=== PATIENT | male | born 1945 | race Caucasian/White ===

== ENCOUNTER 2020-06-10 15:22 | Outpatient (CLI) | payer MEDICARE | END 2020-06-10 15:23 | disposition home or self-care (01) | LOC: CSHMRI 15:22 | PROVIDERS: ATTEND Nurse Practitioner Family | DX: M48.061 Spinal stenosis, lumbar region without neurogenic claudication (principal); M47.816 Spondylosis without myelopathy or radiculopathy, lumbar region; I71.4 Abdominal aortic aneurysm, without rupture | CPT/HCPCS: 72100; 72148 ==

== ENCOUNTER 2022-05-29 18:41 | Inpatient (IN) | payer MEDICARE ==
[2022-05-29] MEDS ORDERED: Ondansetron PF 4 MG/2 ML Vial ONE (20:12)
[2022-05-29 20:19] LABS: #Eosinphils 0.1 10x3/uL (0.0-0.5); #Monocytes 0.9 10x3/uL (0.0-1.1); #Neutrophils 7.1 10x3/uL (1.5-8.4); %Basophils 0.4 % (0.0-2.0); %Eosinophils 0.9 % (0.0-6.0); %Lymphocytes 19.4 % (18.0-47.0); %Neutrophils 69.9 % (40.0-75.0); Hemoglobin 13.1 g/dL (13.5-17.5); Mean Corpuscular HGB CONC 32.6 g/dL (32.0-36.0); Mean Corpuscular Hemoglobin 28.9 pg (27.0-33.0); Mean Corpuscular Volume 88.5 fl (81.2-95.1); Mean Platelet Volume 9.6 fl (7.4-10.4); Platelet Count 260 10x3/uL (150-450); RBC Distribution Width 14.6 % (11.5-14.5); Red Blood Cell (RBC) Count 4.54 10x6/uL (4.32-5.72); White Blood Cell (WBC) Count 10.1 10x3/uL (3.5-10.5)
[2022-05-29 20:37] LABS: ALT (SGPT) 22 U/L (8-55); AST (SGOT) 31 U/L (5-34); Acetaminophen Less than 10.0 mcg/mL (10.0-30.0); Albumin 3.6 g/dL (3.4-4.8); Alcohol Less than 10 mg/dL (Less than 10); Alkaline Phosphatase 59 U/L (40-110); Anion Gap 16 mmol/L (10-20); BUN (Urea Nitrogen) 21 mg/dL (8.4-25.7); Bilirubin, Total 0.3 mg/dL (0.2-1.2); Calc. Creatinine Clearance 0 mL/min (70-130); Carbon Dioxide 24 mmol/L (23-31); Chloride 102 mmol/L (98-107); Estimated GFR 30; Globulin 3.4 g/dL (2.4-3.5); Glucose 154 mg/dL (83-110); Magnesium 1.6 mg/dL (1.6-2.6); Potassium 3.4 mmol/L (3.5-5.1); Salicylate Less than 8.0 mg/dL (15.0-30.0); Sodium 139 mmol/L (136-145)
[2022-05-29 21:01] LABS: CKMB 8.7 ng/mL (0-6.6)
[2022-05-29] MEDS ORDERED: Aspirin Chewable 81 MG TAB ONE (21:03)
[2022-05-29] MEDS ORDERED: Dextrose 50% Abboject 50 ML SYRINGE SLOW IVP PRN (21:35)
[2022-05-29] MEDS ORDERED: Acetaminophen 325 MG TAB PO PRN (21:35)
[2022-05-29] MEDS ORDERED: Senokot S 8.6-50 MG TAB PO PRN (21:35)
[2022-05-29] MEDS ORDERED: Guaifenesin DM 100-10/5 ML UDCUP PO PRN (21:35)
[2022-05-29] MEDS ORDERED: Ondansetron PF 4 MG/2 ML Vial IVP PRN (21:35)
[2022-05-29] MEDS ORDERED: Dextrose 5% in Water 1,000 ML IV PRN (21:35)
[2022-05-29] MEDS ORDERED: Calcium Carbonate 500 MG ChewTAB PO PRN (21:35)
[2022-05-29] MEDS ORDERED: ALPRAZolam 0.5 MG TAB PO PRN (21:39)
[2022-05-29 21:51] LABS: Bilirubin Neg (Negative); Blood, Urine 10 (Negative); Clarity Slightly Cloudy (Clear); Glucose, Urine (Dipstick) 50 mg/dL (Negative); Ketone, Urine Negative (Negative); Leukocyte 25 (Negative); Nitrite Negative (Negative); Protein, Urine (Dipstick) 500 mg/dl (Neg-Trace); Specific Gravity, Urine 1.015 (1.005-1.030); Urobilinogen Normal mg/dL (Less than 2)
[2022-05-29 22:00] LABS: Bacteria/HPF Rare-Few HPF (None Seen)
[2022-05-29 22:03] LABS: Amphetamine Not Detected (NotDetected); Barbiturates Screen Not Detected (NotDetected); Benzodiazepine Screen Detected (NotDetected); Cocaine Metabolite Screen Not Detected (NotDetected); Methadone Not Detected (NotDetected); Methamphetamine Not Detected (NotDetected); Opiate Screen Not Detected (NotDetected); Oxycodone Screen Not Detected (NotDetected); Phencyclidine (PCP) Not Detected (NotDetected); THC/Cannabinoid Screen Not Detected (NotDetected); Tricyclic Screen Not Detected (NotDetected)
[2022-05-29 23:55] VITALS: BMI 40.8
[2022-05-30] MEDS ORDERED: Potassium Chloride 20 MEQ TAB PO SCH (00:15)
[2022-05-30 00:28] LABS: Lactic Acid 1.2 mmol/L (0.5-2.2)
[2022-05-30 05:32] LABS: Anion Gap 14 mmol/L (10-20); BUN (Urea Nitrogen) 22 mg/dL (8.4-25.7); Calc. Creatinine Clearance 51 mL/min (70-130); Calcium 8.4 mg/dL (7.8-10.44); Carbon Dioxide 26 mmol/L (23-31); Chloride 105 mmol/L (98-107); Estimated GFR 33; Glucose 139 mg/dL (83-110); Magnesium 1.6 mg/dL (1.6-2.6); Potassium 3.9 mmol/L (3.5-5.1); Sodium 141 mmol/L (136-145)
[2022-05-30 05:37] LABS: Cardiac Risk 7.9 (Less than 4.5); Cholesterol 206 mg/dl (< 200 Desired); HDL Cholesterol 26 mg/dL (>60 Neg Risk); LDL Cholesterol, Calculated 116 mg/dL; Triglycerides 319 mg/dL (Less than 150)
[2022-05-30 06:02] LABS: CKMB 7.8 ng/mL (0-6.6)
[2022-05-30] MEDS ORDERED: traMADol HCl 50 MG TAB PO PRN (08:24)
[2022-05-30] MEDS ORDERED: Electrolyte Replacement Protocol 1 EACH FS SCH (08:30)
[2022-05-30] MEDS ORDERED: Sodium Chloride 0.9% 1,000 ML IV SCH (08:30)
[2022-05-30] MEDS ORDERED: Clopidogrel Bisulfate 75 MG TAB PO SCH (09:00)
[2022-05-30] MEDS ORDERED: Famotidine/PF 20 mg/2ml Vial SLOW IVP SCH (09:00)
[2022-05-30] MEDS ORDERED: Famotidine 20 MG TAB PO SCH (09:00)
[2022-05-30] MEDS: Aspirin 81 mg Enteric Coated Tablet PO SCH (09:41)
[2022-05-30] MEDS ORDERED: Magnesium 2 GM/50 ML(in water) 2 GM in Premix Bag 1 BAG IVPB SCH (10:00)
[2022-05-30 12:43] LABS: Hemoglobin A1c 6.8 % (4.0-6.0)
[2022-05-30] MEDS ORDERED: ALPRAZolam 0.5 MG TAB PO PRN (15:34)
[2022-05-30] MEDS: Sodium Chloride 0.9% 1,000 ML IV SCH (16:30)
[2022-05-30] MEDS: HumaLOG 300 UNITS/3 ML VIAL SC PRN (18:25)
[2022-05-30] MEDS: hydrALAZINE 20 MG/ML VIAL SLOW IVP PRN (20:32)
[2022-05-30] MEDS ORDERED: Rosuvastatin 20 MG TAB PO SCH (21:00)
[2022-05-30] MEDS: DULoxetine 30 MG CAP PO SCH (21:33)
[2022-05-30] MEDS: Rosuvastatin 20 MG TAB PO SCH (21:33)
[2022-05-31 05:08] LABS: Anion Gap 13 mmol/L (10-20); BUN (Urea Nitrogen) 22 mg/dL (8.4-25.7); Calc. Creatinine Clearance 62 mL/min (70-130); Calcium 8.8 mg/dL (7.8-10.44); Carbon Dioxide 25 mmol/L (23-31); Chloride 104 mmol/L (98-107); Estimated GFR 42; Glucose 114 mg/dL (83-110); Magnesium 1.9 mg/dL (1.6-2.6); Potassium 3.9 mmol/L (3.5-5.1); Sodium 138 mmol/L (136-145)
[2022-05-31 05:30] LABS: #Basophils 0.1 10x3/uL (0.0-0.2); #Eosinphils 0.2 10x3/uL (0.0-0.5); #Monocytes 0.7 10x3/uL (0.0-1.1); %Basophils 0.6 % (0.0-2.0); %Eosinophils 1.7 % (0.0-6.0); %Lymphocytes 21.6 % (18.0-47.0); %Monocytes 7.4 % (0.0-10.0); %Neutrophils 68.5 % (40.0-75.0); Hemoglobin 12.1 g/dL (13.5-17.5); Mean Corpuscular HGB CONC 32.3 g/dL (32.0-36.0); Mean Corpuscular Hemoglobin 28.7 pg (27.0-33.0); Mean Corpuscular Volume 89.1 fl (81.2-95.1); Mean Platelet Volume 9.4 fl (7.4-10.4); Platelet Count 220 10x3/uL (150-450); RBC Distribution Width 14.5 % (11.5-14.5); Red Blood Cell (RBC) Count 4.21 10x6/uL (4.32-5.72); White Blood Cell (WBC) Count 8.8 10x3/uL (3.5-10.5)
[2022-05-31] MEDS ORDERED: cloNIDine 0.1 MG TAB PO SCH ×2 (06:15→09:00)
[2022-05-31] MEDS ORDERED: Magnesium 2 GM/50 ML(in water) 2 GM in Premix Bag 1 BAG IVPB SCH (08:00)
[2022-05-31] MEDS: Aspirin 81 mg Enteric Coated Tablet PO SCH (08:50)
[2022-05-31] MEDS: Famotidine 20 MG TAB PO SCH (09:36)
[2022-05-31] MEDS: HumaLOG 300 UNITS/3 ML VIAL SC PRN (11:56)
[2022-05-31] MEDS: Sodium Chloride 0.9% 1,000 ML IV SCH (13:06)
[2022-05-31] MEDS ORDERED: hydrALAZINE 25 MG TAB PO PRN (13:50)
[2022-05-31] MEDS ORDERED: cefTRIAXone\\ROCEPHIN 1 GM in Sodium Chloride 0.9% 100 ML IVPB SCH (14:00)
[2022-05-31] MEDS ORDERED: Melatonin 3 MG TAB PO SCH (21:00)
[2022-05-31] MEDS: Acetaminophen 325 MG TAB PO PRN (21:43)
[2022-05-31] MEDS: Senokot S 8.6-50 MG TAB PO SCH (21:43)
[2022-05-31] MEDS: Rosuvastatin 20 MG TAB PO SCH (21:43)
[2022-05-31] MEDS: DULoxetine 30 MG CAP PO SCH (21:43)
[2022-05-31] MEDS: hydrALAZINE 20 MG/ML VIAL SLOW IVP PRN (21:44)
[2022-05-31] MEDS: Acetaminophen 650 MG Suppository PR SCH (22:07)
[2022-06-01] MEDS: hydrALAZINE 20 MG/ML VIAL SLOW IVP PRN (00:31)
[2022-06-01] MEDS ORDERED: hydrALAZINE 20 MG/ML VIAL SLOW IVP SCH (01:30)
[2022-06-01] MEDS ORDERED: Labetalol HCl 100 MG/20 ML VIAL SLOW IVP SCH ×2 (02:30→03:45)
[2022-06-01] MEDS: Acetaminophen 325 MG TAB PO PRN (03:38)
[2022-06-01 05:48] LABS: #Basophils 0.1 10x3/uL (0.0-0.2); #Eosinphils 0.2 10x3/uL (0.0-0.5); #Monocytes 0.7 10x3/uL (0.0-1.1); #Neutrophils 6.6 10x3/uL (1.5-8.4); %Basophils 0.6 % (0.0-2.0); %Eosinophils 1.8 % (0.0-6.0); %Lymphocytes 17.5 % (18.0-47.0); %Monocytes 7.8 % (0.0-10.0); %Neutrophils 72.1 % (40.0-75.0); Hemoglobin 12.3 g/dL (13.5-17.5); Mean Corpuscular HGB CONC 32.5 g/dL (32.0-36.0); Mean Corpuscular Hemoglobin 29.1 pg (27.0-33.0); Mean Corpuscular Volume 89.4 fl (81.2-95.1); Mean Platelet Volume 9.6 fl (7.4-10.4); Platelet Count 247 10x3/uL (150-450); RBC Distribution Width 14.5 % (11.5-14.5); Red Blood Cell (RBC) Count 4.23 10x6/uL (4.32-5.72); White Blood Cell (WBC) Count 9.1 10x3/uL (3.5-10.5)
[2022-06-01] MEDS ORDERED: cloNIDine 0.1 MG TAB PO SCH ×3 (06:00→09:00)
[2022-06-01 06:03] LABS: Anion Gap 14 mmol/L (10-20); BUN (Urea Nitrogen) 22 mg/dL (8.4-25.7); Calc. Creatinine Clearance 64 mL/min (70-130); Calcium 9.2 mg/dL (7.8-10.44); Carbon Dioxide 28 mmol/L (23-31); Chloride 100 mmol/L (98-107); Estimated GFR 44; Glucose 150 mg/dL (83-110); Potassium 3.8 mmol/L (3.5-5.1); Sodium 138 mmol/L (136-145)
[2022-06-01] MEDS ORDERED: hydrALAZINE 25 MG TAB PO SCH (09:00)
[2022-06-01] MEDS: Aspirin 81 mg Enteric Coated Tablet PO SCH (09:01)
[2022-06-01] MEDS: Famotidine 20 MG TAB PO SCH (09:01)
[2022-06-01] MEDS: Senokot S 8.6-50 MG TAB PO SCH (09:02)
[2022-06-01] MEDS: Acetaminophen 650 MG Suppository PR SCH (09:02)
[2022-06-01 11:35] VITALS: TEMP 98.4
[2022-06-01 14:16] VITALS: BP 157/67
[2022-06-02] MEDS ORDERED: cloNIDine 0.1 MG TAB PO SCH (09:00)
== END 2022-06-01 13:29 | disposition home or self-care (01) | DRG 91 ==
LOC: CSHERS 18:41 → CSHTELE 23:21
PROVIDERS: ADMIT Student in an Organized Health Care Education/Training Program; ATTEND Internal Medicine
DX: G92.8 Other toxic encephalopathy (principal); I21.A1 Myocardial infarction type 2; N39.0 Urinary tract infection, site not specified; N17.9 Acute kidney failure, unspecified; E87.20 Acidosis, unspecified; Z68.41 Body mass index [BMI] 40.0-44.9, adult; I13.0 Hypertensive heart and chronic kidney disease with heart failure and stage 1 through stage 4 chronic kidney disease, or unspecified chronic kidney disease; N18.30 Chronic kidney disease, stage 3 unspecified; E87.6 Hypokalemia; E83.42 Hypomagnesemia; E78.5 Hyperlipidemia, unspecified; I25.10 Atherosclerotic heart disease of native coronary artery without angina pectoris; E11.22 Type 2 diabetes mellitus with diabetic chronic kidney disease; E66.01 Morbid (severe) obesity due to excess calories; G47.33 Obstructive sleep apnea (adult) (pediatric); D53.9 Nutritional anemia, unspecified; F17.210 Nicotine dependence, cigarettes, uncomplicated; F41.9 Anxiety disorder, unspecified; F32.A Depression, unspecified; I50.9 Heart failure, unspecified; E86.0 Dehydration; Z96.641 Presence of right artificial hip joint; I65.23 Occlusion and stenosis of bilateral carotid arteries; Z95.1 Presence of aortocoronary bypass graft; Z91.198 Patient's noncompliance with other medical treatment and regimen for other reason; Z79.82 Long term (current) use of aspirin; Z79.84 Long term (current) use of oral hypoglycemic drugs; Z82.49 Family history of ischemic heart disease and other diseases of the circulatory system; Z71.6 Tobacco abuse counseling
CPT/HCPCS: 36415; 36416; 51701; 70450; 70551; 71045; 80048; 80053; 80061; 80306; 80307; 81003; 81015; 82140; 82553; 83036; 83605; 83690; 83735; 83880; 84443; 84484; 85025; 87086; 93005; 93306; 93880; 94760; 96374; J0360; J0696; J1650; J1815; J2405; J3475; J3490; J7050

== ENCOUNTER 2022-06-04 15:53 | Emergency (ER) | payer MEDICARE ==
[2022-06-04 16:41] LABS: #Eosinphils 0.1 10x3/uL (0.0-0.5); #Monocytes 0.6 10x3/uL (0.0-1.1); #Neutrophils 5.5 10x3/uL (1.5-8.4); %Basophils 0.5 % (0.0-2.0); %Eosinophils 1.3 % (0.0-6.0); %Lymphocytes 23.8 % (18.0-47.0); %Monocytes 7.4 % (0.0-10.0); %Neutrophils 66.8 % (40.0-75.0); Hemoglobin 12.8 g/dL (13.5-17.5); Mean Corpuscular HGB CONC 32.5 g/dL (32.0-36.0); Mean Corpuscular Volume 89.1 fl (81.2-95.1); Mean Platelet Volume 10.5 fl (7.4-10.4); Platelet Count 182 10x3/uL (150-450); RBC Distribution Width 14.2 % (11.5-14.5); Red Blood Cell (RBC) Count 4.42 10x6/uL (4.32-5.72); White Blood Cell (WBC) Count 8.2 10x3/uL (3.5-10.5)
[2022-06-04 16:54] LABS: ALT (SGPT) 18 U/L (8-55); AST (SGOT) 19 U/L (5-34); Albumin 4.1 g/dL (3.4-4.8); Alkaline Phosphatase 53 U/L (40-110); Anion Gap 19 mmol/L (10-20); BUN (Urea Nitrogen) 45 mg/dL (8.4-25.7); Bilirubin, Total 0.2 mg/dL (0.2-1.2); Calc. Creatinine Clearance 0 mL/min (70-130); Carbon Dioxide 23 mmol/L (23-31); Chloride 101 mmol/L (98-107); Estimated GFR 43; Glucose 141 mg/dL (83-110); Potassium 4.6 mmol/L (3.5-5.1); Protein, Total 7.1 g/dL (5.8-8.1); Sodium 138 mmol/L (136-145)
[2022-06-04 17:16] LABS: CKMB 4.2 ng/mL (0-6.6)
[2022-06-04] MEDS ORDERED: hydrALAZINE 20 MG/ML VIAL ONE (17:24)
[2022-06-04 17:39] LABS: Platelet Morphology Comment Appears Adequate; RBC Morphology Normal
== END 2022-06-04 17:50 | disposition home or self-care (01) ==
LOC: CSHERS 15:53
DX: I11.0 Hypertensive heart disease with heart failure (principal); I50.9 Heart failure, unspecified; E78.5 Hyperlipidemia, unspecified; E11.9 Type 2 diabetes mellitus without complications; Z79.84 Long term (current) use of oral hypoglycemic drugs; Z79.82 Long term (current) use of aspirin
CPT/HCPCS: 71045; 80053; 82553; 83880; 84484; 85025; 93005; J0360; 36415; 96374

== ENCOUNTER 2022-06-10 11:10 | Emergency (ER) | payer MEDICARE | END 2022-06-10 12:37 | disposition home or self-care (01) | LOC: CSHERS 11:10 | DX: I11.0 Hypertensive heart disease with heart failure (principal); I50.9 Heart failure, unspecified; E78.5 Hyperlipidemia, unspecified; E11.9 Type 2 diabetes mellitus without complications | CPT/HCPCS: 99283 ==

== ENCOUNTER 2023-12-12 08:16 | Outpatient (CLI) | payer MEDICARE | END 2023-12-12 08:17 | disposition home or self-care (01) | LOC: CSHSLEEP 08:16 | PROVIDERS: ATTEND Family Medicine | DX: G47.33 Obstructive sleep apnea (adult) (pediatric) (principal); R06.89 Other abnormalities of breathing; G47.10 Hypersomnia, unspecified; G47.9 Sleep disorder, unspecified; R53.83 Other fatigue; F41.9 Anxiety disorder, unspecified; I10 Essential (primary) hypertension; E11.9 Type 2 diabetes mellitus without complications; J44.9 Chronic obstructive pulmonary disease, unspecified; I50.9 Heart failure, unspecified; I25.2 Old myocardial infarction | CPT/HCPCS: 95811 ==